=== PATIENT | male | born 1970 | race Caucasian/White ===

== ENCOUNTER 2017-03-30 07:40 | Outpatient (CLI) | payer OTHER ==
[2017-03-30 13:05] LABS: BASOPHILS % (AUTO) 0.8 %; EOSINOPHILS # (AUTO) 0.2 10^3/uL (0.0-0.7); EOSINOPHILS % (AUTO) 3.2 %; HCT - HEMATOCRIT 42.9 % (42.0-52.0); HGB - HEMOGLOBIN 14.6 g/dL (14.0-18.0); LYMPHOCYTES # (AUTO) 1.3 10^3/uL (1.5-3.5); LYMPHOCYTES % (AUTO) 24.9 %; MEAN CORPUSCULAR HEMOGLOBIN 30.1 pg (27.0-31.0); MEAN CORPUSCULAR HGB CONC 34.1 g/dL (32.0-36.0); MEAN CORPUSCULAR VOLUME 88.3 fL (80.0-94.0); MEAN PLATELET VOLUME 7.5 fL (7.4-11.4); MONOCYTES # (AUTO) 0.5 10^3/uL (0.0-1.0); MONOCYTES % (AUTO) 9.4 %; NEUTROPHILS # (AUTO) 3.3 10^3/uL (1.5-6.6); NEUTROPHILS % (AUTO) 61.7 %; RED BLOOD COUNT 4.86 10^6/uL (4.70-6.10); RED CELL DISTRIBUTION WIDTH 12.5 % (12.0-15.0); UNCORRECTED WHITE BLOOD COUNT 5.4 x10^3/uL; WHITE BLOOD COUNT 5.4 x10^3/uL (4.8-10.8)
[2017-03-30 13:29] LABS: ALBUMIN/GLOBULIN RATIO 1.7 (1.0-2.2); BILIRUBIN,TOTAL 0.9 mg/dL (0.2-1.0); BUN - BLOOD UREA NITROGEN 24 mg/dL (6-20); CALCIUM 9.1 mg/dL (8.5-10.3); CARBON DIOXIDE - CO2 28 mmol/L (21-32); CHLORIDE 104 mmol/L (101-111); CHOL/HDL RATIO 3.4 (<5.0); CHOLESTEROL 193 mg/dL; CREATININE 1.2 mg/dL (0.6-1.2); GFR - MDRD 65 (>89); GLUCOSE 92 mg/dL (70-100); HDL CHOLESTEROL 56 mg/dL; LDL/HDL RATIO 2.1 (<3.6); POTASSIUM 4.1 mmol/L (3.5-5.0); SODIUM 138 mmol/L (135-145); TOTAL PROTEIN 6.7 g/dL (6.7-8.2); TRIGLYCERIDES 94 mg/dL; VLDL CHOLESTEROL 19 mg/dL
== END 2017-03-30 07:41 | disposition home or self-care (01) ==
LOC: LAB.N 07:40
PROVIDERS: ATTEND Family Medicine
DX: Z00.00 Encounter for general adult medical examination without abnormal findings (principal); Z87.898 Personal history of other specified conditions
CPT/HCPCS: 36415; 80053; 80061; 85025

== ENCOUNTER 2017-04-21 13:43 | Outpatient (CLI) | payer OTHER ==
--- NOTE | 2017-04-21 17:59 | XRAY Report ---
THREE VIEW LEFT KNEE: 04/21/2017 CLINICAL INDICATION: Pain. AP, lateral, sunrise views of the left knee demonstrate minimal osteoarthritis. There is no evidence of fracture or dislocation. No effusion is present. IMPRESSION: MINIMAL OSTEOARTHRITIS. JOB #: [id number] EXT JOB #:[id number]
== END 2017-04-21 13:44 | disposition home or self-care (01) ==
LOC: DI.N 13:43
PROVIDERS: ATTEND Family Medicine
DX: M25.562 Pain in left knee (principal); M17.12 Unilateral primary osteoarthritis, left knee

== ENCOUNTER 2017-05-10 13:27 | Emergency (ER) | payer OTHER ==
[2017-05-10] MEDS ORDERED: KETOROLAC 60 MG/2 ML VIAL IM STA (13:38)
--- NOTE | 2017-05-10 13:39 | ED Physician Documentation ---
PD HPI BACK PAIN - Stated complaint Stated Complaint: BACK PX - Chief complaint Chief Complaint: Back Pain - History obtained from History obtained from: Patient - History of Present Illness Timing - onset: Other (46-year-old gentleman with history of back spasms, he sees a chiropractor monthly. His back tightened up today while doing weight lifting, and he has severe pain in the low back that does not radiate. There is no weakness, numbness, or tingling or saddle anesthesia or fevers.) Review of Systems Constitutional: reports: Reviewed and negative Cardiac: reports: Reviewed and negative Respiratory: reports: Reviewed and negative PD PAST MEDICAL HISTORY - Present Medications Home Medications: Ambulatory Orders Medication Instructions Recorded Confirmed Cyclobenzaprine [Flexeril] 10 mg PO TID PRN #20 tablet 05/10/17 - Allergies Allergies/Adverse Reactions: Allergies Allergy/AdvReac Type Severity Reaction Status Date / Time No Known Drug Allergies Allergy Verified 05/10/17 13:35 PD ED PE NORMAL - Vitals Vital signs reviewed: Yes - General General: Alert and oriented X 3, No acute distress - Abdomen Abdomen: Soft, Non tender - Back Back: No spinal TTP - Extremities Extremities: Other (The patient has equal and normal Achilles and patellar reflexes bilaterally. Normal sensation in all areas of the legs. Patient denies saddle anesthesia. Normal strength in flexion-extension at the ankles, knees, and flexion of the hips.) - Neuro Neuro: Alert and oriented X 3, Normal speech - Psych Psych: Normal mood, Normal affect Results - Vitals Vitals: Vital Signs - 24 hr 05/10/17 13:34 Temperature 36.1 C L Heart Rate 63 Respiratory 16 Rate Blood Pressure 126/76 O2 Saturation 99 Oxygen O2 Source Room air PD MEDICAL DECISION MAKING - ED course ED course: This patient has seemingly uncomplicated musculoskeletal back pain. The patient has no "red flags." Specifically denies IV drug use, fevers, incontinence, saddle anesthesia. Spinal epidural abscess was considered, given that the patient has no fever, is not diabetic, has no spinal tenderness, does not use IV drugs, and has no bilateral neurologic symptoms, the diagnosis of spinal epidural abscess is considered exceedingly unlikely. Departure - Departure Disposition: 01 Home, Self Care Clinical Impression: Lumbar strain Qualifiers: Encounter type: initial encounter Qualified Code(s): S39.012A - Strain of muscle, fascia and tendon of lower back, initial encounter Condition: Good Record reviewed to determine appropriate education?: Yes Instructions: ED Sprain Strain Lumbar Prescriptions: Cyclobenzaprine [Flexeril] 10 mg PO TID PRN #20 tablet PRN Reason: Pain Comments: Call your doctor to arrange a follow-up appointment, make the next available appointment. In the interim, return anytime if worse or if new symptoms develop.
[2017-05-10] MEDS ORDERED: KETOROLAC 60 MG/2 ML VIAL ONE (13:46)
[2017-05-10 14:01] VITALS: BP 129/76
== END 2017-05-10 14:00 | disposition home or self-care (01) ==
LOC: ED 13:27
DX: S39.012A Strain of muscle, fascia and tendon of lower back, initial encounter (principal); X50.9XXA Other and unspecified overexertion or strenuous movements or postures, initial encounter; Y93.B3 Activity, free weights
CPT/HCPCS: 96372; 99283

== ENCOUNTER 2017-09-02 09:16 | Outpatient (CLI) | payer OTHER ==
--- NOTE | 2017-09-02 11:47 | XRAY Report ---
DATE OF SERVICE: 09/02/2017 BILATERAL KNEES: 09/02/2017 COMPARISON: Left knee of 04/21/2017. INDICATION: Joint and knee pain. TECHNIQUE: Three views of each knee. FINDINGS: There is bilateral minimal patellofemoral osteoarthritis. No effusions. Soft tissues grossly unremarkable. Normal alignment. No evidence of acute fracture. IMPRESSION: MINIMAL BILATERAL PATELLOFEMORAL OSTEOARTHRITIS. NO APPRECIABLE CHANGE WITH COMPARISON OF THE LEFT. TD: 09/02/2017 12:27 [facility]
== END 2017-09-02 09:17 | disposition home or self-care (01) ==
LOC: DI.N 09:16
PROVIDERS: ATTEND Physician Assistant Medical
DX: M17.0 Bilateral primary osteoarthritis of knee (principal)

== ENCOUNTER 2017-09-13 07:28 | Outpatient (CLI) | payer OTHER ==
--- NOTE | 2017-09-13 10:50 | MRI Report ---
EXAM: LEFT KNEE MRI WITHOUT CONTRAST EXAM DATE: 09/13/2017 08:22 AM. CLINICAL HISTORY: Previous surgery for meniscal tear in 2002. Ongoing left knee pain with clicking an d catching. COMPARISON: Left knee radiography from 09/02/2017. TECHNIQUE: Multiplanar, multisequence T1-weighted and fluid-sensitive sequences of the knee without c ontrast. Other: None. FINDINGS: Bones and Articular Cartilage: Subchondral osteophyte, tiny subcortical cyst, and focal grade 3-4 cho ndromalacia at the posterior aspect of the lateral femoral condyle. Grade 1-2 chondromalacia at the p osterior aspect of the lateral tibial plateau. Small focal full-thickness articular cartilage fissure at the posterior aspect of the lateral tibial plateau. Articular cartilage at the medial compartment is within normal limits. Focal grade 3-4 chondromalacia at the femoral trochlear groove. No patellar subluxation. Medial Meniscus: The medial meniscus is intact. Lateral Meniscus: The lateral meniscus is intact. Cruciate Ligaments: The anterior and posterior cruciate ligaments are intact. Collateral Ligaments: The medial collateral and lateral collateral ligamentous structures are intact. Tendons: The quadriceps, patellar, semimembranosus, and popliteus tendons are unremarkable. Musculature: No edema or fatty atrophy. Other: No effusion. No popliteal cyst. No loose bodies. The medial and lateral retinacula are intact. The subcutaneous tissues and fat pads are unremarkable. IMPRESSION: 1. 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 Subchondral osteophyte at the posterior aspect of the lateral femoral condyle. 2. No ligament or meniscal injury. [facility]CULOS[facility] SECTION Referring Provider Line: [phone] SITE ID: [id number]
== END 2017-09-13 07:29 | disposition home or self-care (01) ==
LOC: DI 07:28
PROVIDERS: ATTEND Physician Assistant Medical
DX: M94.262 Chondromalacia, left knee (principal)

== ENCOUNTER 2017-11-17 08:28 | Outpatient (CLI) | payer OTHER ==
--- NOTE | 2017-11-17 10:21 | XRAY Report ---
THREE VIEW RIGHT SHOULDER: 11/16/2017 CLINICAL INDICATION: Pain. FINDINGS: Internal and external rotational views and a scapular Y view of the right shoulder demonstrate mild degenerative changes of the acromioclavicular and glenohumeral joints. There is no evidence of acute fracture or dislocation. No foreign body is seen in the soft tissues. IMPRESSION: MILD OSTEOARTHRITIS. TD: 11/17/2017 10:20
== END 2017-11-17 08:29 | disposition home or self-care (01) ==
LOC: DI.N 08:28
PROVIDERS: ATTEND Physician Assistant Medical
DX: M19.011 Primary osteoarthritis, right shoulder (principal)

== ENCOUNTER 2018-10-12 08:11 | Outpatient (CLI) | payer OTHER ==
--- NOTE | 2018-10-13 09:01 | XRAY Report ---
Reason: FINGER PAIN, RIGHT Procedure Date: 10/12/2018 Accession Number: [id number] / [id number] Procedure: XRN - Finger(s) RT CPT Code: FULL RESULT: EXAM: RIGHT FIFTH DIGIT RADIOGRAPHY EXAM DATE: 10/12/2018 08:32 AM. CLINICAL HISTORY: Finger pain. COMPARISON: None. TECHNIQUE: 3 views. FINDINGS: Bones: No acute fracture. There is shortened and somewhat curved appearance of the fifth metacarpal, which could be congenital or sequela of previous fracture. Joints: No dislocation or subluxation. No significant degenerative change. Soft Tissues: Unremarkable. IMPRESSION: No acute osseous or articular abnormality. [facility]
== END 2018-10-12 08:12 | disposition home or self-care (01) ==
LOC: DI.N 08:11
PROVIDERS: ATTEND Physician Assistant Medical
DX: M79.644 Pain in right finger(s) (principal)
CPT/HCPCS: 73140